=== PATIENT | female | born 1995 | race Caucasian/White ===

== ENCOUNTER 2022-01-24 15:09 | Outpatient (CLI) | payer BC, OTHER, SELFPAY ==
[2022-01-24 15:36] LABS: Hematocrit 39.9 % (37.0-47.0); Hemoglobin 13.7 g/dL (12.0-15.0); Mean Corpuscular HGB Conc 34.3 g/dl (32-36); Mean Corpuscular Volume 87.3 fl (80-100); Mean Platelet Volume 10.7 fl (7.4-10.4); Platelet Count Result 253 k/mm3 (150-375); Red Blood Count 4.57 M/mm3 (4.2-5.4); Red Cell Distribution Width 12.6 % (11.5-14.5)
[2022-01-24 15:48] LABS: Alanine Aminotransferase 22 U/L (6-35); Albumin Level 4.9 g/dL (3.5-5.1); Alkaline Phosphatase 60 U/L (38-126); Aspartate Amino Transferase 22 U/L (14-36); Bilirubin,Total 0.6 mg/dL (0.2-1.3); INR 1.1; Prothrombin Time 13.6 Seconds (11.1-14.7)
[2022-01-24 16:41] LABS: Iron 45 ug/dL (37-170)
[2022-01-24 16:53] LABS: Percent Iron Saturation 12 % (20-50)
[2022-01-24 18:23] LABS: Hepatitis B Surface Antigen Negative (Negative)
[2022-01-24 18:28] LABS: HAV RESULT Negative (Negative); Hepatitis B Core IgM Result Negative (Negative)
[2022-01-24 18:40] LABS: Hepatitis B Surface Anti Res Negative
[2022-01-24 18:48] LABS: Hepatitis C Virus Antibody Reactive (Negative)
[2022-01-26 10:59] LABS: Hepatitis A Antibody Total Reactive (Nonreactive)
[2022-01-26 18:32] LABS: Hepatitis C RNA, Quant PCR <15 IU/mL
[2022-01-27 21:04] LABS: LKM 1 Antibody <=20.0 U (<=20.0)
[2022-01-28 16:16] LABS: Actin Antibody (IgG) <20 U (<20)
[2022-01-29 11:30] LABS: Mitochondrial (M2) Ab (IgG) <=20.0 U (<=20.0)
[2022-01-29 14:21] LABS: Ceruloplasmin 26 mg/dL (18-53)
[2022-01-30 18:33] LABS: Alpha Fetoprotein Tumor Marker 1.9 ng/mL (<6.1)
[2022-02-01 01:18] LABS: ALT 14 U/L (6-29); Alpha-2-Macroglobulin 181 mg/dL (106-279); Apolipoprotein A1 115 mg/dL (101-198); Fibrosis Score 0.07; Fibrosis Stage F0; GGT 10 U/L (3-40); Haptoglobin 144 mg/dL (43-212); Necroinflammat Act Grade A0; Total Bilirubin 0.5 mg/dL (0.2-1.2)
== END 2022-01-24 15:10 | disposition home or self-care (01) ==
PROVIDERS: Visit Provider Nurse Practitioner
DX: K76.0 Fatty (change of) liver, not elsewhere classified (principal); R93.2 Abnormal findings on diagnostic imaging of liver and biliary tract
CPT/HCPCS: 36415; 80074; 80076; 81596; 82105; 82390; 82728; 83516; 83520; 83540; 83550; 85027; 85610; 86038; 86376; 86706; 86708; 87522

== ENCOUNTER 2022-03-01 07:08 | Outpatient (CLI) | payer BC, OTHER, SELFPAY ==
--- NOTE | ~2022-03-01 | CT_ITS ---
EXAMINATION: CT abdomen w con INDICATION: Right upper quadrant pain TECHNIQUE: Computed tomographic images of the abdomen were obtained after the administration of 100 c c of Omnipaque 350 intravenous contrast. The dose-length product (DLP) was 144.96 mGy-cm. Automated e xposure control and iterative reconstruction technique were employed. COMPARISON: None available FINDINGS: The lung bases are clear. The heart size is normal. The liver, spleen, pancreas, gallbladde r, and adrenal glands are normal. The right kidney is unremarkable. There is a 1.5 x 1.2 cm exophytic soft tissue density mass of the left kidney lower pole. No pathologically enlarged abdominal lymph n odes are identified. There is no free intraperitoneal gas or evidence of bowel obstruction. IMPRESSION: 1. No CT correlate for the patient's symptoms. 2. Indeterminate left kidney mass. Further evaluation by CT or MRI without and with contrast is recom mended. Reviewed, dictated and finalized at location B. HING SORTER IMPRESSION: 1. No CT correlate for the patient's symptoms. 2. Indeterminate left kidney mass. Further evaluation by CT or MRI without and with contrast is recommended.
== END 2022-03-01 07:09 | disposition home or self-care (01) ==
PROVIDERS: Visit Provider Nurse Practitioner
DX: R93.2 Abnormal findings on diagnostic imaging of liver and biliary tract (principal); R10.11 Right upper quadrant pain; N28.89 Other specified disorders of kidney and ureter
CPT/HCPCS: 74160; Q9967

== ENCOUNTER 2022-03-12 15:20 | Outpatient (CLI) | payer BC, OTHER, SELFPAY ==
--- NOTE | ~2022-03-12 | XR_ITS ---
[XR ribs RT 2V w CXR 2V ] INDICATION: Right rib pain TECHNIQUE: Frontal projection of the upper right ribs, frontal projection of the lower right ribs, ob lique projection of all the right ribs, frontal inspiratory chest x-ray for interpretation. FINDINGS: There are no displaced rib fractures identified. There are no soft tissue abnormality see n. The lungs are clear. IMPRESSION: 1:No acute displaced rib fractures. Reviewed, dictated and finalized at location B. R SYSTEMS ENGINEER
== END 2022-03-12 15:21 | disposition home or self-care (01) ==
PROVIDERS: PCP Family Medicine; Visit Provider Nurse Practitioner
DX: R10.11 Right upper quadrant pain (principal); R07.81 Pleurodynia; K76.0 Fatty (change of) liver, not elsewhere classified; R76.8 Other specified abnormal immunological findings in serum
CPT/HCPCS: 71046; 71100

== ENCOUNTER 2022-03-26 07:51 | Outpatient (RCR) | payer BC, OTHER, SELFPAY ==
[2022-03-26 08:40] VITALS: BMI 25.4
[2022-03-26 08:41] VITALS: BMI 25.4
== END 2022-06-12 07:46 | disposition home or self-care (01) ==
LOC: ANHDMC 07:51
PROVIDERS: PCP Family Medicine; Visit Provider Nurse Practitioner
DX: K76.0 Fatty (change of) liver, not elsewhere classified (principal); Z71.3 Dietary counseling and surveillance
CPT/HCPCS: 97802

== ENCOUNTER → 2022-04-01 12:46 | Outpatient (CLI) | payer BC, OTHER, SELFPAY ==
--- NOTE | ~2022-04-01 | MR_ITS ---
EXAMINATION: MR renal wo/w con DATE: 04/01/2022 13:54 INDICATION: Left kidney mass. TECHNIQUE: Magnetic resonance imaging (MRI) of the abdomen was performed without and with 13 mL Multi Annabella intravenous contrast. COMPARISON: CT abdomen 03/01/2022 FINDINGS: The liver, gallbladder, spleen, pancreas, adrenal glands, and right kidney are normal. There is a 14 mm exophytic enhancing mass in left kidney. There are no dilated loops of bowel. There are no patholo gically enlarged lymph nodes. There is no free intraperitoneal fluid. IMPRESSION: 1. 14 mm enhancing mass in left kidney, consistent with renal cell carcinoma. Reviewed, dictated and finalized at location A. MOBILE TAILLIGHT ASSEMBLER
== END ==
PROVIDERS: PCP Family Medicine; Visit Provider Nurse Practitioner
DX: N28.89 Other specified disorders of kidney and ureter (principal)
CPT/HCPCS: 74183; A9577

== ENCOUNTER 2022-06-18 13:55 | Outpatient (CLI) | payer BC, OTHER, SELFPAY ==
[2022-06-18 15:07] LABS: Alanine Aminotransferase 21 U/L (6-35); Albumin Level 4.8 g/dL (3.5-5.1); Alkaline Phosphatase 61 U/L (38-126); Aspartate Amino Transferase 21 U/L (14-36); Bilirubin,Total 0.7 mg/dL (0.2-1.3)
[2022-06-20 20:41] LABS: Hepatitis C Viral RNA PCR <15 IU/mL
== END 2022-06-18 13:56 | disposition home or self-care (01) ==
LOC: ANHLAB 13:58
PROVIDERS: PCP Family Medicine; Visit Provider Nurse Practitioner
DX: K76.0 Fatty (change of) liver, not elsewhere classified (principal); R76.8 Other specified abnormal immunological findings in serum
CPT/HCPCS: 36415; 80076; 87522

== ENCOUNTER 2022-07-24 00:22 | Day surgery (SDC) | payer BC, OTHER, SELFPAY ==
[2022-07-10 12:44] VITALS: BMI 26.2
[2022-07-24 11:45] VITALS: BP 113/74; PULSE 76; RESP 18; TEMP 36.5; O2SAT 99; BMI 26.3
[2022-07-24] MEDS: LACTATED RINGERS 1,000 ML 150 ML IV CONT (11:58)
--- NOTE | 2022-07-24 12:23 | WPDANESEPPF ---
Anes - Initial Pre Proc Eval Procedure: Operation Date: 07/24/22 13:15 Proposed Procedures p Esophagogastroduodenoscopy - Bienvenido Berg MD Date/Time: 07/24/22 12:23 Surgeon: Bienvenido Berg MD Pre Op Diagnosis: RUQP Patient Data Age: 27 Gender: F Height: 1.6 m Weight: 67.4 kg Last Vital Signs Temp 36.5 C 07/24/22 11:45 Pulse 76 07/24/22 11:45 Resp 18 07/24/22 11:45 BP 113/74 07/24/22 11:45 Pulse Ox 99 07/24/22 11:45 O2 Del Method Room Air 07/24/22 11:45 Allergies Allergy/AdvReac Type Severity Reaction Status Date / Time No Known Allergies Allergy Unverified 07/10/22 12:55 Home Medications Medication Instructions Recorded Confirmed Type vitamin E mixed 400 unit capsule 400 unit PO DAILY 01/24/22 07/10/22 History multivitamin 1 tablet PO DAILY 07/10/22 07/10/22 History Patient hx anesthesia problems: none Family hx anesthesia problems: none Results Review: All pre-operative results and documents have been reviewed as part of the pre-operative evaluation. [facility] Past Medical History Medical History Abnormal liver diagnostic imaging Hepatitis C antibody positive in blood Left kidney mass Left kidney mass NAFLD (nonalcoholic fatty liver disease) Rib pain on right side RUQ abdominal pain Social History Social History Smoking status: Never smoker Second hand tobacco smoke exposure: No Alcohol intake: never Substance use: never Substance use type: does not use Living arrangements: with family Gender identity (if verbalized by the patient): Female Spiritual care concerns: No Anes - Eval Final PreProcedure Day of Procedure 07/24/22 12:23 Patient weight: overweight Heart: regular rate and rhythm Lungs: clear to auscultation and normal air movement Airway: Mallampati scale class II Neurological: alert and oriented Last oral intake: >/= 8 hours ASA classification: II Emergent: no Anesthetic plan: proceed Anesthesia type and monitoring: general GIVS Results Review: All pre-operative results and documents have been reviewed as part of the pre-operative evaluation. Informed Consent: The patient's anesthetic plan and its attendant risks and benefits were discussed with the patient/family/POA. Questions were solicited and answers provided to the satisfaction of the patient/family/POA.
--- NOTE | 2022-07-24 12:34 | WPDHPUPDATE1 ---
History and Physical Update Update Date/Time: 07/24/22 12:34 History and Physical has been reviewed, including an updated exam of the patient. There are NO changes in the patient's condition. Risks, benefits, and alternatives have been discussed and questions answered. Patient agrees to proceed with procedure.
[2022-07-24 12:54] VITALS: BP 120/70; PULSE 81; RESP 16; O2SAT 100
[2022-07-24 13:04] VITALS: BP 105/70; PULSE 73; RESP 21; O2SAT 100
[2022-07-24 13:14] VITALS: BP 109/73; PULSE 68; RESP 18; O2SAT 100
== END 2022-07-24 13:24 | disposition home or self-care (01) ==
PROVIDERS: PCP Family Medicine; Visit Provider Internal Medicine Gastroenterology
PROC: 0DJ08ZZ Inspection of Upper Intestinal Tract, Via Natural or Artificial Opening Endoscopic (ICD-10-PCS; CPT 43235; principal; 2022-07-24 13:15)
DX: R10.11 Right upper quadrant pain (principal); K76.0 Fatty (change of) liver, not elsewhere classified; R76.8 Other specified abnormal immunological findings in serum
CPT/HCPCS: 43239; 88305; 88342; J2001; J2704; J7120

== ENCOUNTER 2023-01-10 10:30 | Outpatient (CLI) | payer BC, OTHER, SELFPAY ==
[2023-01-10 10:54] LABS: Hematocrit 39.9 % (37.0-47.0); Hemoglobin 13.6 g/dL (12.0-15.0); Mean Corpuscular HGB Conc 34.1 g/dl (32-36); Mean Corpuscular Hemoglobin 30.1 pg (26-34); Mean Corpuscular Volume 88.3 fl (80-100); Mean Platelet Volume 10.4 fl (7.4-10.4); Platelet Count Result 244 k/mm3 (150-375); Red Blood Count 4.52 M/mm3 (4.2-5.4); Red Cell Distribution Width 12.2 % (11.5-14.5); White Blood Count 9.4 K/mm3 (4.5-10.0)
[2023-01-10 11:02] LABS: Alanine Aminotransferase 19 U/L (6-35); Albumin Level 4.3 g/dL (3.5-5.1); Alkaline Phosphatase 49 U/L (38-126); Anion Gap 8 mmol/L (8-16); Aspartate Amino Transferase 23 U/L (14-36); Bilirubin,Total 0.6 mg/dL (0.2-1.3); Blood Urea Nitrogen 8 mg/dL (7-17); Calcium 9.4 mg/dL (8.4-10.2); Carbon Dioxide 24 mmol/L (22-30); Chloride 103 mmol/L (98-107); Estimated Glomerular Filt Rate > 60; Glucose 116 mg/dL (65-110); Potassium 3.5 mmol/L (3.4-5.0); Sodium 135 mmol/L (137-145)
[2023-01-13 14:43] LABS: Hepatitis C RNA, Quant PCR <15 IU/mL
== END 2023-01-10 10:31 | disposition home or self-care (01) ==
LOC: ANHLAB 10:32
PROVIDERS: PCP Family Medicine; Visit Provider Nurse Practitioner
DX: K76.0 Fatty (change of) liver, not elsewhere classified (principal); R76.8 Other specified abnormal immunological findings in serum
CPT/HCPCS: 36415; 80053; 85027; 87522

== ENCOUNTER 2023-07-11 08:38 | Outpatient (CLI) | payer BC, OTHER, SELFPAY ==
[2023-07-11 09:32] LABS: Hematocrit 31.3 % (37.0-47.0); Mean Corpuscular HGB Conc 35.1 g/dl (32-36); Mean Corpuscular Hemoglobin 31.6 pg (26-34); Mean Corpuscular Volume 89.9 fl (80-100); Mean Platelet Volume 10.4 fl (7.4-10.4); Platelet Count Result 225 k/mm3 (150-375); Red Blood Count 3.48 M/mm3 (4.2-5.4); Red Cell Distribution Width 13.1 % (11.5-14.5); White Blood Count 8.1 K/mm3 (4.5-10.0)
[2023-07-11 09:41] LABS: Prothrombin Time 13.2 Seconds (11.1-14.7)
[2023-07-11 09:45] LABS: Alanine Aminotransferase 16 U/L (6-35); Albumin Level 3.6 g/dL (3.5-5.1); Alkaline Phosphatase 85 U/L (38-126); Anion Gap 6 mmol/L (8-16); Aspartate Amino Transferase 19 U/L (14-36); Bilirubin,Total 0.4 mg/dL (0.2-1.3); Blood Urea Nitrogen 3 mg/dL (7-17); Calcium 9.6 mg/dL (8.4-10.2); Carbon Dioxide 22 mmol/L (22-30); Chloride 106 mmol/L (98-107); Estimated Glomerular Filt Rate > 60; Glucose 93 mg/dL (65-110); Potassium 3.1 mmol/L (3.4-5.0); Sodium 134 mmol/L (137-145)
== END 2023-07-11 08:39 | disposition home or self-care (01) ==
LOC: ANHLAB 08:40
PROVIDERS: PCP Family Medicine; Visit Provider Nurse Practitioner
DX: K76.0 Fatty (change of) liver, not elsewhere classified (principal)
CPT/HCPCS: 36415; 80053; 85027; 85610

== ENCOUNTER 2024-01-12 14:53 | Outpatient (CLI) | payer BC, OTHER, SELFPAY ==
[2024-01-12 15:35] LABS: Hematocrit 40.8 % (37.0-47.0); Hemoglobin 13.7 g/dL (12.0-15.0); Mean Corpuscular HGB Conc 33.6 g/dl (32-36); Mean Corpuscular Hemoglobin 29.1 pg (26-34); Mean Corpuscular Volume 86.8 fl (80-100); Mean Platelet Volume 10.6 fl (7.4-10.4); Platelet Count Result 273 k/mm3 (150-375); Red Cell Distribution Width 12.3 % (11.5-14.5); White Blood Count 5.8 K/mm3 (4.5-10.0)
[2024-01-12 15:46] LABS: Prothrombin Time 13.4 Seconds (11.1-14.7)
[2024-01-12 15:51] LABS: Alanine Aminotransferase 35 U/L (6-35); Albumin Level 4.8 g/dL (3.5-5.1); Alkaline Phosphatase 77 U/L (38-126); Anion Gap 10 mmol/L (4-12); Aspartate Amino Transferase 35 U/L (14-36); Bilirubin,Total 0.4 mg/dL (0.2-1.3); Blood Urea Nitrogen 10 mg/dL (7-17); Calcium 9.7 mg/dL (8.4-10.2); Carbon Dioxide 27 mmol/L (22-30); Chloride 98 mmol/L (98-107); Estimated Glomerular Filt Rate > 60; Glucose 94 mg/dL (65-110); Potassium 4.2 mmol/L (3.4-5.0); Sodium 135 mmol/L (137-145)
== END 2024-01-12 14:54 | disposition home or self-care (01) ==
PROVIDERS: PCP Family Medicine; Visit Provider Nurse Practitioner
DX: K76.0 Fatty (change of) liver, not elsewhere classified (principal)
CPT/HCPCS: 36415; 80053; 85027; 85610

== ENCOUNTER 2024-02-04 09:22 | Outpatient (CLI) | payer BC, OTHER, SELFPAY ==
--- NOTE | ~2024-02-04 | US_ITS ---
Limited Abdominal Sonogram: Real-time sonographic imaging of the right upper quadrant was performed. Clinical History: Right upper quadrant pain Findings: The liver appears normal with no evidence of mass lesion or bile duct dilatation. Main por rambo vein demonstrates normal direction of flow. The gallbladder is well distended, and appears normal with no evidence of gallstone or wall thickening. The common bile duct measures 3 mm. The visualize d pancreas, aorta, and IVC are unremarkable. Right kidney measures 11.2 cm in length, without hydrone phrosis or renal stone. Impression: No significant abnormality seen. Reviewed, dictated and finalized at location . Impression: No significant abnormality seen.
== END 2024-02-04 09:23 | disposition home or self-care (01) ==
LOC: ANHIMG 09:24
PROVIDERS: PCP Family Medicine; Visit Provider Nurse Practitioner
DX: R10.11 Right upper quadrant pain (principal); R11.0 Nausea; K76.0 Fatty (change of) liver, not elsewhere classified
CPT/HCPCS: 76705

== ENCOUNTER 2024-02-27 17:29 | Emergency (ER) | payer BC, OTHER, SELFPAY ==
--- NOTE | ~2024-02-27 | XR_ITS ---
CHEST RADIOGRAPH, PA AND LATERAL CLINICAL HISTORY: Cough . COMPARISON: None available TECHNIQUE: PA and lateral views of the chest. FINDINGS The cardiomediastinal silhouette is unremarkable. The lungs are clear. Visualized osseous structures and soft tissues are unremarkable. IMPRESSION: No focal infiltrate or effusion. Reviewed, dictated and finalized at location A. AL HUMAN RESOURCES DIRECTOR
[2024-02-27 17:38] VITALS: BP 120/85; PULSE 97; RESP 16; TEMP 36.3; O2SAT 99
--- NOTE | 2024-02-27 17:43 | ED.URI ---
HPI - URI/Sore Throat General Chief Complaint: Upper Respiratory Infection Stated Complaint: sorethroat,fever Time Seen by Provider: 02/27/24 18:20 Source: patient and RN notes reviewed Mode of arrival: ambulatory Limitations: no limitations History of Present Illness HPI Narrative: 28-year-old female presents with concern for fever of 102 last night, sore throat, chills, body aches, headache, nausea, cough. Reports exposure to strep. She reports symptoms started 3 days ago. She reports nasal congestion and ear pain. MD elicited complaint: cough and sore throat Related Data Home Medications Medication Instructions Recorded Confirmed multivitamin 1 tablet PO DAILY 07/10/22 02/27/24 Allergies Allergy/AdvReac Type Severity Reaction Status Date / Time No Known Allergies Allergy Verified 02/27/24 17:44 Review of Systems Review of Systems: CONSTITUTIONAL: Reports malaise, chills, sweats, fever. EYES: Denies visual changes, redness, or discharge. ENT: Reports rhinorrhea, congestion, otalgia and sore throat. CARDIOVASCULAR: Denies chest pain, palpitations, or edema. RESPIRATORY: Reports cough. Denies dyspnea. GASTROINTESTINAL: Denies abdominal pain, vomiting, diarrhea. Reports nausea SKIN: Denies rash or itching. MUSCULOSKELETAL: Reports myalgia. NEUROLOGIC: Reports headache. All systems reviewed & are unremarkable except as noted in HPI and below PMFSH Past Medical History Medical History Abnormal liver diagnostic imaging Constipation GERD (gastroesophageal reflux disease) Hepatitis C antibody positive in blood Left kidney mass Left kidney mass NAFLD (nonalcoholic fatty liver disease) Rib pain on right side RUQ abdominal pain Social History Social History Smoking status: Never smoker Second hand tobacco smoke exposure: No Alcohol intake: never Substance use: never Substance use type: does not use Living arrangements: with family Gender identity (if verbalized by the patient): Female Spiritual care concerns: No Comments At time of signature, agree with nursing past medical, surgical, social and family history. There is no relevant family history pertinent to the presenting complaint Exam Narrative: GENERAL: Well-appearing, well-nourished, and in no acute distress. HEAD: Normocephalic EYES: PERRLA, conjunctivae clear ENT: Nares clear, turbinates edematous and erythematous, clear discharge. Mucous membranes moist. TM pearly knott with dull light reflex bilaterally; no tragal tenderness. Oropharynx not erythematous without lesions. Tonsils not enlarged and without exudate, no drooling, no hoarseness, no trismus, uvula midline. NECK: Supple. No lymphadenopathy CHEST: Clear to auscultation, breath sounds equal. No wheezing, rhonchi, rales, or stridor. No respiratory distress, speaks in full sentences. HEART: Regular rate and rhythm. No murmur heard. SKIN: Warm, dry, no rash. NEURO: Alert and oriented x3. PSYCH: Normal mood and affect Course Course Emergency Course: Patient is aware of diagnosis, understands and agrees to treatment plan. Anticipatory guidance given. Patient agrees to follow-up as directed and is aware of reasons to seek care at the emergency department. Portions of this record may have been created with voice recognition software Level of Care: Express Care Visit Vital Signs Vital signs: Vital Signs Temperature 97.3 F L 02/27/24 17:38 Pulse Rate 97 02/27/24 17:38 Respiratory Rate 16 02/27/24 17:38 Blood Pressure 120/85 02/27/24 17:38 Pulse Oximetry 99 02/27/24 17:38 Temperature 97.3 F L 02/27/24 17:38 Pulse Rate 97 02/27/24 17:38 Respiratory Rate 16 02/27/24 17:38 Blood Pressure 120/85 02/27/24 17:38 Pulse Oximetry 99 02/27/24 17:38 Reviewed. MDM - URI/Sore Throat MDM Narrative Medical decision making narrative: Differential diagnosis considered: Kumar virus, strep pharyngitis, allergic rhinitis, upper respiratory tract infection, sinusitis, rhinosinusitis, nasopharyngitis. viral pharyngitis, otitis media, otitis externa, pneumonia, bronchitis, viral cough syndrome, viral syndrome, and influenza. Exam findings show no acute concerns or changes; patient is non-toxic appearing and is in no distress. Patient is appropriate for outpatient treatment and follow-up. Lab Data Attestation: I reviewed the patient's lab results. Imaging Data My impression: Images reviewed, interpreted by radiologist, agree, see report. Radiologist's impression: CHEST RADIOGRAPH, PA AND LATERAL CLINICAL HISTORY: Cough . COMPARISON: None available TECHNIQUE: PA and lateral views of the chest. FINDINGS The cardiomediastinal silhouette is unremarkable. The lungs are clear. Visualized osseous structures and soft tissues are unremarkable. IMPRESSION: No focal infiltrate or effusion. Critical Care Time Critical Care Time Critical Care Time: No Discharge Plan Discharge Clinical Impression: Viral illness Patient Disposition: Home, Self-Care Condition: Stable Instructions: Viral Syndrome (ED) Additional Instructions: Your x-ray looks normal, it does not show pneumonia Your rapid strep swab was negative today at [facility]. A throat culture will be sent to the laboratory for further testing. If the test is positive, you will receive a phone call within 48 hours and an appropriate antibiotic will be initiated at that time. Your symptoms are likely due to a viral illness, which is not treated with antibiotics. Viral symptoms can be present for up to a few weeks. -Alternate Tylenol and Motrin per package directions for fever or pain. -Antihistamine medication such as Benadryl at night and Zyrtec during the day can help improve symptoms. -Eat and drink things that are easy to swallow, like tea or soup, or popsicles to suck on. -Oral rinses such as: Salt water gargles and/or may use topical anesthetic (eg. Chloraseptic spray) or lozenges to relieve dryness or throat pain). -Frequent hand washing or hand glazier structural glass is one of the best ways to prevent spread of infection. -Follow up with primary care provider in 2-3 days if condition is not improving; or seek ER visit if you have trouble breathing, cannot drink enough fluids, have muffled voice, difficulty opening your mouth, or severe swelling. Prescriptions: New pseudoephedrine HCl [12 Hour Decongestant] 120 mg tablet extended release 120 mg PO Q12H PRN (Reason: nasal congestion) Qty: 20 0RF methylprednisolone [Medrol (Tj)] 4 mg tablets,dose pack See Rx Instructions .ROUTE .COMPLEX Qty: 21 0RF Rx Instructions: orally per package directions No Action omeprazole 20 mg capsule,delayed release(DR/EC) 20 mg PO DAILY 56 Days Qty: 56 0RF multivitamin Tablet 1 tablet PO DAILY Follow-up/Referrals: Hunter,MD Yaneth [Primary Care Provider] - Stand Alone Forms: Work/School Release IP Time of Disposition: 18:44
[2024-02-27 17:54] LABS: EDSTREPNEGPOS1 Negative (Negative)
== END 2024-02-27 18:50 | disposition home or self-care (01) ==
PROVIDERS: Emergency Provider Nurse Practitioner; PCP Family Medicine
DX: B34.9 Viral infection, unspecified (principal); K21.9 Gastro-esophageal reflux disease without esophagitis
CPT/HCPCS: 71046; 87081; 87880; 99213; G0463

== ENCOUNTER 2024-07-06 07:32 | Outpatient (CLI) | payer BC, OTHER, SELFPAY ==
--- OUTSIDE RECORDS SUMMARY | 2024-07-06 07:35 | XMS_ITS | Encounter Summary ---
Author Organization [facility] Address [address] [place] [address] Care Team Providers Care Pumper Brewery Name Role Phone Yaneth Harrison MD Primary Care Provider Encounter Details Date Type Department Care Team (Late st Contact Info) Description 08/12/2022 [employer] Message Enc [facility] Family & Internal Medicine [facility] [id number] [place] [phone] [place] [address] [facility]. [address] [place] [address] Scheduling question Social History Tobacco Use Types Packs/Day Years Used Date Smoking Tobacco: Never Smokeless Tobacco: Never Alcohol Use Standard Drinks/Week Comments Yes 0 (1 standard drink = 0.6 oz pur e alcohol) rare PHQ-2 Answer Date Recorded PHQ-2 Score - If the patient scores above 3, please move on to questions 3-9 0 12/17/2021 Comments No Sex and Gender Information Value Date Recorded Sex Assigned at Female 06/24/2024 1:07 PM FARM EQUIPMENT ASSEMBLER Legal Sex Female 8:26 PM CDT Gender Identity Not on file Sexual Orientation Not on file documented as of this encounter Functional Status * RETIRED Are you deaf or do you have serious difficulty hearing Answer Date of Assessment Author Status No 11/08/2020 7:08 PM CDT Activ e * RETIRED Are you blind or do you have serious difficulty seeing, even when wearing glasses? Answer Date of Assessment Author Status No 11/08/2020 7:08 PM CDT Activ e * Do you have serious difficulty walking or climbing stairs? Answer Date of Assessment Author Status No 11/08/2020 7:08 PM CDT Harleen Navarrete R N Active * Do you have difficulty dressing or bathing? Answer Date of Assessment Author Status No 11/08/2020 7:08 PM CDT Harleen Navarrete R N Active * Because of a physical, mental, or emotional condition, do you have difficulty doing errands alone such as visiting a doctor's office or shopping? Answer Date of Assessment Author Status No 11/08/2020 7:08 PM CDT Harleen Navarrete R N Active documented as of this encounter Mental Status * Because of a physical, mental, or emotional condition, do you have serious difficulty concentrating, remembering, or making decisions? Answer Entry Date Author Status No 11/08/2020 7:08 PM CDT Harleen Navarrete R N Active documented in this encounter Plan of Treatment Upcoming Encounters Date Type Department Care Team (Late st Contact Info) Description 10/25/2024 1:40 PM CDT Office Visit [facility] Family & Internal Medicine [address] [phone] [place] [address] [facility] [employer]. [address] [place] [address] documented as of this encounter Goals Goal Patient Goal Type Associated Problems Recent Progress Patient-Stated? Author Safety Patient/family will have appropriate support at home upon discharge General No Tonja Santos RN documented as of this encounter Visit Diagnoses Not on filedocumented in this encounter Care Teams Pumper Brewery Relationship Specialty [place] [address] [facility]. [address] [place] [id number] PCP - General FAMILY PRACTICE 03/12/22 documented as of this encounter
--- OUTSIDE RECORDS SUMMARY | 2024-07-06 07:35 | XMS_ITS | Encounter Summary ---
Author Organization [facility] Address [address] [place] [address] Care Team Providers Care Collection Agent Name Role Phone Yaneth Harrison MD Primary Care Provider [phone] Encounter Details Date Type Department Care Team (Late st Contact Info) Description 03/26/2023 [employer] Message Enc [facility] Family & Internal Medicine [facility] [id number] [place] [phone] [place], [facility] Provider Appt Social History Tobacco Use Types Packs/Day Years Used Date Smoking Tobacco: Never Smokeless Tobacco: Never Alcohol Use Standard Drinks/Week Comments Not Currently 0 (1 standard drink = 0.6 oz pur e alcohol) rare PHQ-2 Answer Date Recorded Patient Health Questionnaire-2 Score 1 10/02/2022 Comments Yes Sex and Gender Information Value Date Recorded Sex Assigned at Female 06/24/2024 1:07 PM POULTRY PROCESSOR Legal Sex Female 8:26 PM CDT Gender [...] Description 10/25/2024 1:40 PM CDT Office Visit [facility] Family & Internal Medicine [facility] [address] [place] [address] [place] [address] [facility]. [address] [place] [address] documented as of this encounter Goals Goal Patient Goal Type Associated Problems Recent Progress Patient-Stated? Author Safety Patient/family will have appropriate support at home upon discharge General No Tonja Santos RN documented as of this encounter Visit Diagnoses Not on filedocumented in this encounter Care Teams Collection Agent Relationship Specialty [place] [address] [facility]. [address] [place] [address] PCP - General FAMILY PRACTICE 03/12/22 documented as of this encounter
--- OUTSIDE RECORDS SUMMARY | 2024-07-06 07:35 | XMS_ITS | Encounter Summary ---
Author Organization [facility] Address [address] [place] [address] Care Team Providers Care Rock Wool Applicator Name Role Phone Yaneth Harrison MD Primary Care Provider [phone] Encounter Details Date Type Department Care Team (Late st Contact Info) Description 07/10/2022 [employer] Message Enc [facility] Family & Internal Medicine [facility] [id number] [place] [phone] [email or web address], [facility] Provider lab results Social History Tobacco Use Types Packs/Day Years [...] Sex Assigned at Female 06/24/2024 1:07 PM AUTHORIZATION REPRESENTATIVE Legal Sex Female 8:26 PM CDT Gender [...] Status No 11/08/2020 7:08 PM CDT Harleen Navarreet R N Active documented in this encounter Plan of Treatment Upcoming Encounters Date Type Department Care Team (Late st Contact Info) Description 10/25/2024 1:40 PM CDT Office Visit [facility] Family & Internal Medicine [facility] [address] [place] [phone] [place] [address] [facility]. [address] [place] [address] documented as of this encounter Goals Goal Patient Goal Type Associated Problems Recent Progress Patient-Stated? Author Safety Patient/family will have appropriate support at home upon discharge General No Tonja Santos RN documented as of this encounter Visit Diagnoses Not on filedocumented in this encounter Care Teams Rock Wool Applicator Relationship Specialty [place] [address] [facility] [address] [place] [address] PCP - General FAMILY PRACTICE 03/12/22 documented as of this encounter
--- OUTSIDE RECORDS SUMMARY | 2024-07-06 07:35 | XMS_ITS | Referral Summary ---
Author Organization [facility] Address [address] [facility] [place] [address] Care Team Providers Care Burr Picker Name Role Phone Yaneth Harrison MD Primary Care Provider Source Comments [facility],non-owned Affiliates and Associated Physician Practices is amultiple site organization consisting of ambulatory clinics and hospital sitesin [place], [place], [place] and [place]. This disclosure is being madepursuant to the Care Everywhere program and may not contain all information available regarding this patient. Last updated 18.[facility] Social History Tobacco Use Types Packs/Day Years Used Date Smoking Tobacco: Never Assessed Sex and Gender Information Value Date Recorded Sex Assigned at Not on file Gender Identity Not on file Sexual Orientation Not on file Plan of Treatment Not on file Care Teams Burr Picker Relationship Specialty [place] [address] [phone] PCP - General 08/13/22
--- OUTSIDE RECORDS SUMMARY | 2024-07-06 07:35 | XMS_ITS | Clinical Summary ---
Author Organization [facility] Address [address] [facility] [place] [address] Care Team Providers Care Lead Nitrate Processor Name Role Phone Yaneth Harrison MD Primary Care Provider [phone] Source Comments [facility],non-owned Affiliates and Associated Physician Practices is amultiple site organization consisting of ambulatory clinics and hospital sitesin [place], [place], [place] and [place]. This disclosure is being madepursuant to the Care Everywhere program and may not contain all information available regarding this patient. Last updated 18.[facility] [employer] Social History Tobacco Use Types Packs/Day Years Used Date Smoking Tobacco: Never Assessed Sex and Gender Information Value Date Recorded Sex Assigned at Not on file Gender Identity Not on file Sexual Orientation Not on file Plan of Treatment Health Maintenance Due Date Last Done Comments PAP SMEAR 1995 HIV SCREENING 2010 HEPATITIS C SCREENING 04/07/2013 DTAP/TDAP/TD VACCINES (1 - Tdap) 2014 HEPATITIS B VACCINE (1 of 3 - 19+ 3-dose series) 2014 COVID-19 VACCINE (1 - 2023-2 5 season) 2023 INFLUENZA VACCINE (#1) 2023 DEPRESSION SCREENING 04/21/2024 ZOSTER VACCINE (1 of 2) 2045 HIB VACCINE Aged Out No longer eligi ble based on patient's age to complete this topic HPV VACCINE Aged Out No longer eligi ble based on patient's age to complete this topic MENINGOCOCCAL (Group B) VACC INE SHARED DECISION-MAKING Aged Out No longer eligibl e based on patient's age to complete this topic MENINGOCOCCAL GROUPS A/C/Y/W VACCINE Aged Out No longer eligible b ased on patient's age to complete this topic PNEUMOCOCCAL VACCINE Aged Out No long er eligible based on patient's age to complete this topic Care Teams Lead Nitrate Processor Relationship Specialty [place] [address] [address] PCP - General 08/13/22
--- OUTSIDE RECORDS SUMMARY | 2024-07-06 07:35 | XMS_ITS | Encounter Summary ---
Author Organization [facility] Address [address] [place] [address] Care Team Providers Care Roller Operator Name Role Phone Yaneth Harrison MD Primary Care Provider [phone] Encounter Details Date Type Department Care Team (Late st Contact Info) Description 04/29/2022 Epidemic Sound Message Enc [facility] Family & Internal Medicine [facility] [address] [place] [address] [place] [address] [facility]. [address] [place] [address] Kidney cancer update Social History Tobacco Use Types Packs/Day Years [...] Sex Assigned at Female 06/24/2024 1:07 PM FURNITURE STAINER Legal Sex Female 8:26 PM CDT Gender Identity Not on file Sexual Orientation Not on file COVID-19 Exposure Response Date Recorded In the last 10 days, have yo u been in contact with someone who was confirmed or suspected to have Coronavirus/COVID-19? No / Unsure 04/02/2022 1:57 PM FURNITURE STAINER documented as of this encounter Functional Status [...] Author Status No 11/08/2020 7:08 PM CDT Harelen Navarrete R N Active * Do you [...] R N Active documented in this encounter Progress Notes * Cherise De Oliveira RN - 04/29/2022 11:31 AM CST FYI. Does he need a surgical clearance appt? ITURE STAINER documented in this encounter Plan of Treatment Upcoming Encounters Date Type Department Care Team (Late st Contact Info) Description 10/25/2024 1:40 PM CDT Office Visit [facility] Family & Internal Medicine [facility] [address] [place] [address] [place] [address] [facility]. [address] [place] [address] documented as of this encounter Goals Goal Patient Goal Type Associated Problems Recent Progress Patient-Stated? Author Safety Patient/family will have appropriate support at home upon discharge General No Freddy Santosssica J, RN documented as of this encounter Visit Diagnoses Not on filedocumented in this encounter Care Teams Roller Operator Relationship Specialty [place] [address] [place] [address] PCP - General FAMILY PRACTICE 03/12/22 documented as of this encounter
--- OUTSIDE RECORDS SUMMARY | 2024-07-06 07:35 | XMS_ITS | Patient Health Summary ---
Author Organization [facility] Address [address] [facility] [place] [address] Care Team Providers Care Mule Tender Name Role Phone Yaneth Harrison MD Primary Care Provider [phone] Note from [facility],non-owned Affiliates and Associated Physician Practices is amultiple site organization consisting of ambulatory clinics and hospital sitesin [place], [place], [place] and [place]. This disclosure is being madepursuant to the Care Everywhere program and may not contain all information available regarding this patient. Last updated 18.[facility] Social History Tobacco Use Types Packs/Day Years Used Date Smoking Tobacco: Never Assessed Sex and Gender Information Value Date Recorded Sex Assigned at Not on file Gender Identity Not on file Sexual Orientation Not on file Procedures * WA LIVER ELASTOGRAPHY(Performed 02/11/2022) Performed for Hepatic steatosis Results * WA LIVER ELASTOGRAPHY (02/11/2022 12:25 PM CDT) Narrative Han Pinedo MD - 02/11/2022 12:25 PM CDT Han Pinedo MD 02/12/2022 11:21 AM Diagnosis: Hepatic steatosis RN verified patient not , no implanted devices and NPO for prior 3 hours. Date of Exam: 02/11/2022 Liver Stiffness: (LSM, kPa) median: 5.4 IQR (interquartile range): 0.4 IQR/Median% (ideally < 30%): 7% CAP (controlled attenuation parameter): 276 Technical Difficulty: None Ordering Provider: Radha Escalante APRN Phone Fax Fibroscan interpretation: I have personally reviewed the Fibroscan report and associated tracings. The calculated Liver Stiffness Measurement (LSM, kPa) indicates that: The probability of advanced liver fibrosis is: low. The loss of ultrasound signal, (controlled attenuation parameter, CAP [dB/m]), indicates that the probability of hepatic steatosis is: moderate. Han Pinedo MD The following criteria are used to indicate the probability of advanced (stage 3-4) fibrosis: < 7.0 kPa: low 7.0-8.9 kPa: low to moderate 9.0-14.9 kPa: moderate 15-20 kPa: high > 20 kPa: very high Liver stiffness > 20 kPa is also associated with a high probability of complications of portal hypertension including varices and ascites. Liver stiffness > 50 kPa is associated with a high risk of variceal bleeding. These interpretations are based on the following published data: Chen PJ, Foreign M, Dipti M, et al. Accuracy of FibroScan controlled attenuation parameter and liver stiffness measurement in assessing steatosis and fibrosis in patients with nonalcoholic fatty liver disease. Gastroenterology 2019;156:0048-4694. Luis A MS, Nazario R, Van Santo ML, et al. Vibration-controlled transient elastography to assess fibrosis and steatosis in patients with nonalcoholic fatty liver disease. Clin Gastroenterol Hepatol 2019;17:156-163. Note: 1. Fibroscan cannot reliably identify earlier stages of fibrosis (ie distinguish F0 from F1 and F2) and thus a histologic stage cannot be predicted from the Fibroscan reading. 2. Assessing the likelihood of advanced fibrosis in patients with indeterminate liver stiffness measurement (LSM) by Fibroscan (e.g., 8-15 kPa) can be improved by also calculating the FIB4 score (Davyduke et al. Hepatology Communications 2019;3:3228-8110) or NAFLD Fibrosis score (Regalado et al. Clinical Gastroenterology and Hepatology 2019;17:1538-5615. from routine clinical data. 3. Liver stiffness can be increased by factors other than fibrosis including passive congestion, infiltrative processes, active alcoholism, biliary obstruction and marked inflammation. The interpretation of the Fibroscan result provided above may not have taken such clinical factors into account. Disease etiology also influences Fibroscan cutoff values for fibrosis stages and the following cutoffs have been proposed (Anatoly et al, Clin Gastro Hepatol 2015; 13:27-36): Cutoffs for Stage 3 and Stage 4 fibrosis respectively: Hepatitis B: >9 and >11.7 kPa Hepatitis C: >9.5 and >12.5 kPa HCV-HIV: >11 and >14 kPa Cholestatic liver diseases: >10 and >17.9 kPa NAFLD/FERREIRA: >10 and >14 kPa CAP estimates of steatosis: normal <200 dB/m mild 200 to 250 dB/m moderate 250-290 dB/m substantial > 290 dB/m (Note that Fibroscan is not a quantitative measure of liver fat.) These criteria are estimates and may change as additional supporting data becomes available. [email or web address] Radha Escalante HULL BUILDER-BILINGUAL ADMINISTRATIVE ASSISTANT PROCEDURE/ MINOR SURGICAL ORDERABLES Care Teams Mule Tender Relationship Specialty [place] [address] [address] PCP - General 08/13/22
--- OUTSIDE RECORDS SUMMARY | 2024-07-06 07:35 | XMS_ITS | Encounter Summary ---
Author Organization [facility] Address [address] [place] [address] Care Team Providers Care Director Payment Name Role Phone Yaneth Harrison MD Primary Care Provider [phone] Encounter Details Date Type Department Care Team (Late st Contact Info) Description 12/13/2022 Motivating Wellnesst Message Enc [facility] Family & Internal Medicine [facility] [address] [place] [address] [place] [address] [facility]. [address] [place] [address] MRI Lab order Social History Tobacco Use Types Packs/Day Years Used Date Smoking Tobacco: Never Smokeless Tobacco: Never Alcohol Use Standard Drinks/Week Comments Yes 0 (1 standard drink = 0.6 oz pur e alcohol) rare PHQ-2 Answer Date Recorded Patient Health Questionnaire-2 Score 1 10/02/2022 Comments No Sex and Gender Information Value Date Recorded Sex Assigned at Female 06/24/2024 1:07 PM CONSULTING BUSINESS DEVELOPER Legal Sex Female 8:26 PM CDT Gender [...] documented in this encounter Progress Notes * Nallely Betancourt RN - 12/13/2022 2:54 PM CDT Please advise documented in this encounter Plan of Treatment Upcoming Encounters Date Type Department Care Team (Late st Contact Info) Description 10/25/2024 1:40 PM CDT Office Visit [facility] Family & Internal Medicine [facility] [address] [place] [address] [place] [address] [facility] [place] [address] documented as of this encounter Goals Goal Patient Goal Type Associated Problems Recent Progress Patient-Stated? Author Safety Patient/family will have appropriate support at home upon discharge General Tonja Enciso RN documented as of this encounter Visit Diagnoses Not on filedocumented in this encounter Care Teams Director Payment Relationship Specialty [place] [address] [facility] [address]. [address] [place] [address] PCP - General FAMILY PRACTICE 03/12/22 documented as of this encounter
--- OUTSIDE RECORDS SUMMARY | 2024-07-06 07:35 | XMS_ITS | Encounter Summary ---
Author Organization [facility] Address [address] [place] [address] Care Team Providers Care Business Management Manager Name Role Phone Tonja Pickens PROJECT MANAGEMENT DIRECTOR Primary Care Provider + Mari Disla PROJECT MANAGEMENT DIRECTOR Primary Care Provider [phone] Yaneth Harrison MD Primary Care Provider [phone] Encounter Details Date Type Department Care Team (Late st Contact Info) Description 11/27/2021 Win the Planet Message [facility] [address] [place] [address] Mari Disla PROJECT MANAGEMENT DIRECTOR [address] [place], [place] [id number] Follow up question from UTI Social History Tobacco Use Types Packs/Day Years Used Date Smoking Tobacco: Never Smokeless Tobacco: Never Alcohol Use Standard Drinks/Week Comments Yes 0 (1 standard drink = 0.6 oz pur e alcohol) rare PHQ-2 Answer Date Recorded PHQ-2 Score - If the patient scores above 3, please move on to questions 3-9 0 11/19/2021 Comments No Sex and Gender Information Value Date Recorded Sex Assigned at Female 06/24/2024 1:07 PM NEW BUSINESS CLERK Legal Sex Female 8:26 PM CDT Gender Identity Not on file Sexual Orientation Not on file COVID-19 Exposure Response Date Recorded In the last 10 days, have yo u been in contact with someone who was confirmed or suspected to have Coronavirus/COVID-19? No / Unsure 11/19/2021 7:17 AM CDT documented as of this encounter Functional Status [...] Description 10/25/2024 1:40 PM CDT Office Visit [facility] Family & Internal Medicine [facility] [address] [place] [address] [place] [address] [facility]. [address] [place] [address] documented as of this encounter Goals Goal Patient Goal Type Associated Problems Recent Progress Patient-Stated? Author Safety Patient/family will have appropriate support at home upon discharge General No Tonja Santos RN documented as of this encounter Visit Diagnoses Not on filedocumented in this encounter Care Teams Business Management Manager Relationship Specialty Start Date End Date Tonja Pickens NP [address] [facility] [address] [place] [address] PCP - General Nurse Practitioner Family 09/14/21 Mari Disla NP [address] [place] [address] PCP - General NURSE PRACTITIONER 03/04/22 03/11/22 [place] [address] [facility]. [address] [place] [address] PCP - General FAMILY PRACTICE 03/12/22 documented as of this encounter
--- OUTSIDE RECORDS SUMMARY | 2024-07-06 07:35 | XMS_ITS | Clinical Summary ---
Author Organization [facility] Address [facility] [place] [address] Care Team Providers Care Associate Professor Of History Name Role Phone Yaneth Harrison MD Primary Care Provider Allergies No known active allergies Medications famotidine (PEPCID) 40 MG tablet Take 1 tablet (40 mg total) by mouth daily. 02/09/2023 Active Multiple Vitamin (MULTIVITAMIN ADULT OR) Active albuterol sulfate HFA 108 (90 Base) MCG/ACT inhalerIndicati ons:Wheezing Inhale 2 puffs into the lungs every 6 (six) hours as needed for Wheezing. 18 g 03/11/2024 Active semaglutide-karla ght management (WEGOVY) 0.5 mg/dose injection (PEN)Indication s:Weight Loss Inject 0.5 mg into the skin once a week. Indications: Weight Loss 2 mL 04/27/2024 Active azithromycin (ZITHROMAX) 250 MG tabletIndicatio ns:Sore throat,Streptoc occus exposure Take 2 tablets by mouth on day one then 1 daily for four days. 6 tablet 06/24/2024 Active Active Problems Problem Noted Date Diagnosed Date Class 1 obesity due to exces s calories with serious comorbidity and body mass index (BMI) of 30.0 to 30.9 in adult 04/01/2024 H/O: section 08/21/2023 Adjustment reaction of adult life 10/02/2022 S/p nephrectomy 10/02/2022 Hx of hepatitis C 04/02/2022 Renal mass 04/02/2022 Overview (03/11/2024): Added automatically from request for surgery [id number] NAFLD (nonalcoholic fatty liver disease) 022 Inflammatory liver disease 04/09/2012 Resolved Problems Problem Noted Date Diagnosed Date Resolved Date (HHS/HCC) 11/08/2020 09/26/19 22 Encounters Date Type Department Care Team Description 06/24/2024 5:26 PM BARRELHEAD INSPECTOR - 06/24/2024 11:59 PM BARRELHEAD INSPECTOR Hospital Encounter [facility] [address] [place], [place] [id number] Sofia Rivero, PA Discharge Disposition: Home or Self Care (Routine Discharge) 06/24/2024 1:20 PM BARRELHEAD INSPECTOR Office Visit [facility] Family & Internal [address] [address] Sofia Rivero PA Sore Throat (X 1 week, cold chills) 06/24/2024 Travel 04/24/2024 MyChart Message Enc [facility] Family & Internal [facility] [address] [place] [address] Yaneth Harrison MD Prescription refill? from Last 3 Months Immunizations Name Administration Dates Next Due DTaP (Daptacel) 08/13/2000,10/21/1997 Dtp/Hib (Tetramune) 07/15/1996, 6,1995,06/18 Fluzone 6 Months+ Quad (0.5 mL Prefilled Syringe) 03/30/2020 HPV4 (Gardasil) 02/01/2013, 1,01/29/2010,11/27 Hepatitis A (Havrix [address]) 04/30/2006, 006 Hepatitis B Pediatric 01/21/1996, 996,1995,04/23 Hib (Omni-Hib) 1995 Influenza (FluMist) 01/29/2008 Influenza (Generic) 02/01/2013, 2,01/31/2011,04/07 Influenza Adult (Generic) 01/03/2017 MMR (MMRII) 08/22/2023,,08/13/2000,11/12,04/26/1996 Meningococcal (Menactra) 07/13/2012,04/30/2006 Polio IPV (Ipol) 08/13/2000,11/12/1996 Polio Opv (Generic) 1995,1995,1995 Tdap (Generic) 09/06/2020,08/17/2020,04/30/2006 Varicella (Varivax) 01/29/2008,01/24/1998 Family History Medical History Relation Comments None Brother 1 None Brother 2 Diabetes Father Breast Cancer Maternal Aunt 1 x 3 Breast Cancer Maternal Aunt 2 Breast Cancer Maternal Grandmother Breast Problems Mother benign lumpectom ies Breast Cancer Paternal Aunt Diabetes Paternal Grandfather Breast Cancer Paternal Grandmother Relation Status Comments Brother 1 Alive Brother 2 Alive Father Alive Maternal Aunt 1 Alive Maternal Aunt 2 Alive Maternal Grandmother Mother Alive Paternal Aunt Alive Paternal Grandfather Paternal Grandmother Social History Tobacco Use Types Packs/Day Years Used Date Smoking Tobacco: Never Smokeless Tobacco: Never Tobacco Cessation:Counseling Given: No Alcohol Use Standard Drinks/Week Comments Not Currently 0 (1 standard drink = 0.6 oz pur e alcohol) rare PHQ-2 Answer Date Recorded Patient Health Questionnaire-2 Score 0 06/24/2024 Depression Answer Date Recor ded Last EPDS Total Score 6 08/22/2023 Last EPDS Self Harm Result 08/21 Comments No Sex and Gender Information Value Date Recorded Sex Assigned at Female 06/24/2024 1:07 PM BARRELHEAD INSPECTOR Legal Sex Female 8:26 PM CDT Gender Identity Not on file Sexual Orientation Not on file Last Filed Vital Signs Vital Sign Reading Time Taken Comments Blood Pressure 111/67 06/24/2024 1:14 PM BARRELHEAD INSPECTOR Pulse 78 06/24/2024 1:14 PM BARRELHEAD INSPECTOR Temperature 36.9 C (98.5 F) 06/24/2024 1:14 PM BARRELHEAD INSPECTOR Respiratory Rate 20 06/24/2024 1:14 PM BARRELHEAD INSPECTOR Oxygen Saturation 99% 04/01/2024 7:09 AM BARRELHEAD INSPECTOR Inhaled Oxygen Concentration - - Weight 74.4 kg (164 lb) 06/24/2024 1:14 PM BARRELHEAD INSPECTOR Height 160 cm (5' 3 ) 06/24/2024 1:14 PM BARRELHEAD INSPECTOR Body Mass Index 29.05 06/24/2024 1:14 PM BARRELHEAD INSPECTOR Plan of Treatment Upcoming Encounters Date Type Department Care Team (Late st Contact Info) Description 10/25/2024 1:40 PM CDT Office Visit [facility] Family & Internal Medicine - [place] [address] [place] [address] [place] [address] [facility]. [address] [place] [address] Health Maintenance Due Date Last Done Comments Cervical Cancer Screening Pap Smear (Age 21 to 29) Every 3 Years 1995 Annual Physical 09/25/2022 09/25/2021 COVID-19 Vaccine ( season) 2023 03/14/2021 Influenza Adult (#1) 2024 03/30/2020, 01/03/2017, 02/01/2013, Additional history exists Cervical Cancer Screening 10/03/2025 Po stponed from 1995 (Going to Outside Clinic) DTaP, Tdap and Td Vaccines (6 - Td or Tdap) 09/06/2030 09/06/2020, 08/17/2020, 04/30/2006, Additional history exists Hepatitis B Vaccines Completed 01/21/1996, 1995, 1995, Additional history exists Meningococcal Vaccine Completed 07/13/2012, 007 HPV Vaccines Completed 02/01/2013, 05/23, 01/29/2010, Additional history exists Hepatitis C Completed 07/29/2023, 05/22, 01/29/2023, Additional history exists PHQ-2 (Physician [place]) Completed 06/24/2024 Meningococcal B Vaccine Aged Out No l onger eligible based on patient's age to complete this topic Pneumococcal Vaccine: Pediatrics (0 to 5 Years) and At-Risk Patients (6 to 64 Years) Aged Out No longer eligible based on patient's age to complete this topic RSV Immunizations Under 20 Months Aged Out No longer eligible based on patient's age to complete this topic Goals Goal Patient Goal Type Associated Problems Recent Progress Patient-Stated? Author Safety Patient/family will have appropriate support at home upon discharge Tonja Mota building materials sales attendant Procedure Name Priority Date/Time Associated Diagnosis Comments CULTURE STREP A Routine 06/24/2024 1:29 PM BARRELHEAD INSPECTOR Sore throat STREP A RAPID Routine 06/24/2024 Sore throat HEPATITIS C ANTIBODY Routine 07/29/2023 12:24 PM CDT Encounter for screening of mother ([facility]) from Last 3 Months or Most Recently Relevant to Health Maintenance Results * CULTURE STREP A (06/24/2024 1:29 PM BARRELHEAD INSPECTOR) SPEC DESCRIPTION THROAT 06/24/2024 5:26 PM BARRELHEAD INSPECTOR [facility] SPECIAL REQUESTS NO SPECIAL REQUEST 06/24/2024 5:26 PM BARRELHEAD INSPECTOR [facility] CULTURE RESULT NO STREPTOCOCCUS PYOGENES (GROUP A) ISOLATED 06/26/2024 10:25 AM BARRELHEAD INSPECTOR [facility] THROAT SWAB / Unknown 06/24/2024 1:29 PM BARRELHEAD INSPECTOR 06/24/2024 5:28 PM BARRELHEAD INSPECTOR Sofia DUMONT MICROBIOLOGY - GENERAL ORDER ASHLEY Final Result [facility] [address] [place] [address], [place] [phone] [facility] [address] [place] [address], [place] [phone] * STREP A RAPID (06/24/2024) RAPID STREP TEST NEGATIVE NEGATIVE [id number] ANJELICA ROONEY [facility] Internal Control: VALID VALID [id number] WARREN LOPEZ STRUCTURE OF ANTERIOR PORTION OF NECK / Unknown 06/24/2024 Sofia DUMONT MICROBIOLOGY - GENERAL ORDER ASHLEY Final Result Performing Organization Address [facility] Co de Phone Number [phone] ANJELICA ROONEY [place] [address] [place] [address], [place] [phone] * (ABNORMAL) HEPATITIS C ANTIBODY (07/29/2023 12:24 PM CDT) HEPATITIS C AB REACTIVE(A ) NON-REACTI VE 07/29/2023 10:18 PM CDT [facility] Comment: NOTE: A POSITIVE RESULT WILL BE CONFIRMED BY THE HEP C RNA, QUANT, PCR TEST. 07/29/2023 12:2 4 PM CDT [facility] Final Result Performing Organization Address City/[facility] Co de Phone Number [facility] [address] [place] [address], [place] [phone] from Last 3 Months or Most Recently Relevant to Health Maintenance Insurance [facility] Advance Directives * Full Code (Latest Code Status on File) Date Activated Date Inactivated Comments 08/21/2023 9:21 AM 08/23/2023 12:43 PM * Full Code Date Activated Date Inactivated Comments 08/08/2023 12:28 PM 08/08/2023 3:18 PM * Full Code Date Activated Date Inactivated Comments 07/07/2023 9:55 AM 07/07/2023 1:14 PM * Full Code Date Activated Date Inactivated Comments 11/09/2020 9:23 PM 11/12/2020 3:16 PM * Full Code Date Activated Date Inactivated Comments 11/08/2020 5:59 PM 11/09/2020 9:23 PM Care Teams Associate Professor Of History Relationship Specialty [place] [address] [facility] [address] [place] [address] PCP - General FAMILY PRACTICE 03/12/22
[2024-07-06 08:19] LABS: Hematocrit 42.7 % (37.0-47.0); Hemoglobin 14.2 g/dL (12.0-15.0); Mean Corpuscular HGB Conc 33.3 g/dl (32-36); Mean Corpuscular Hemoglobin 29.1 pg (26-34); Mean Corpuscular Volume 87.5 fl (80-100); Mean Platelet Volume 10.9 fl (7.4-10.4); Platelet Count Result 309 k/mm3 (150-375); Red Blood Count 4.88 M/mm3 (4.2-5.4); Red Cell Distribution Width 12.6 % (11.5-14.5); White Blood Count 5.7 K/mm3 (4.5-10.0)
[2024-07-06 08:34] LABS: Alanine Aminotransferase 24 U/L (6-35); Alkaline Phosphatase 62 U/L (38-126); Anion Gap 12 mmol/L (4-12); Aspartate Amino Transferase 23 U/L (14-36); Bilirubin,Total 0.4 mg/dL (0.2-1.3); Blood Urea Nitrogen 6 mg/dL (7-17); Calcium 9.8 mg/dL (8.4-10.2); Carbon Dioxide 26 mmol/L (22-30); Chloride 102 mmol/L (98-107); Estimated Glomerular Filt Rate > 60; Glucose 101 mg/dL (65-110); Sodium 140 mmol/L (137-145)
== END 2024-07-06 07:33 | disposition home or self-care (01) ==
PROVIDERS: PCP Family Medicine; Visit Provider Nurse Practitioner
DX: K76.0 Fatty (change of) liver, not elsewhere classified (principal)
CPT/HCPCS: 36415; 80053; 85027; 85610

== ENCOUNTER 2024-09-12 11:20 | Emergency (ER) | payer BC, OTHER, SELFPAY ==
[2024-09-12 11:26] VITALS: BP 107/81; PULSE 104; RESP 16; TEMP 36.8; O2SAT 100
[2024-09-12 11:35] LABS: EDUAAPPEAR Clear; EDUABILI Negative (Negative); EDUABLOOD Negative (Negative); EDUACOLOR1 Yellow; EDUAGLUCOSE Negative (Negative); EDUAKETONE Negative (Negative); EDUALEUKO Negative (Negative); EDUANITRATE Negative (Negative); EDUAPROTEIN Negative (Negative); EDUASPGRAVITY 1.025; EDUAUROBILI 0.2
--- NOTE | 2024-09-12 11:39 | ED_ITS ---
HPI - Female Genitourinary General Chief complaint: Urogenital-Female Stated complaint: Uti Symptoms Time Seen by Provider: 09/12/24 11:30 Source: patient Mode of arrival: ambulatory Limitations: no limitations History of Present Illness HPI Narrative: 29-year-old female presents with complaint of dysuria, urgency, frequency, fatigue, low back pain for 2 days. Afebrile. Denies nausea vomiting. History of partial nephrectomy. Has been told ?if having symptoms of urinary tract infection to get on antibiotic right away ?. All systems reviewed and negative except as noted above. Related Data Home Medications ?Medication ?Instructions ?Recorded ?Confirmed ?Last Taken ?Type multivitamin 1 tablet PO DAILY 07/10/22 07/14/24 Unknown History semaglutide (weight loss) 0.25 0.25 mg subcut WEEKLY 07/14/24 07/14/24 Unknown History mg/0.5 mL subcutaneous pen injector (Wegovy) Allergies Allergy/AdvReac Type Severity Reaction Status Date / Time No Known Allergies Allergy Verified 09/12/24 11:32 Review of Systems Review of Systems: CONSTITUTIONAL: Denies fever, chills, or sweats. EYES: Denies visual changes, redness, or discharge. ENT: Denies rhinorrhea, congestion, sore throat, or otalgia. CARDIOVASCULAR: Denies chest pain, palpitations, or edema. RESPIRATORY: Denies cough or dyspnea. GASTROINTESTINAL: Denies abdominal pain, nausea, vomiting, or diarrhea. GENITOURINARY: Reports dysuria, frequency, urgency. Denies hematuria. SKIN: Denies rash or itching. MUSCULOSKELETAL: Denies back pain, joint pain, or myalgia. NEUROLOGIC: Denies headache, numbness, or weakness. PSYCHIATRIC: Denies anxiety or depression. All other systems reviewed are negative, except as documented in HPI. [facility] Past Medical History Medical History Constipation GERD (gastroesophageal reflux disease) Left kidney mass Rib pain on right side Hepatitis C antibody positive in blood Left kidney mass RUQ abdominal pain Abnormal liver diagnostic imaging NAFLD (nonalcoholic fatty liver disease) Social History Social History Smoking status: Never smoker Second hand tobacco smoke exposure: No Alcohol intake: never Substance use: never Substance use type: does not use Living arrangements: with family Gender identity (if verbalized by the patient): Female Spiritual care concerns: No Comments At time of signature, agree with nursing past medical, surgical, social and family history. There is no relevant family history pertinent to the presenting complaint. Exam Narrative: GENERAL: This is a well-nourished, well-developed patient, in no apparent distress. HEAD: normocephalic, atraumatic. EYES: PERRL. Sclera clear/white. Vision is grossly intact. EARS: External ears normal NOSE: External nose normal NECK: Neck supple, non-tender without lymphadenopathy, masses or thyromegaly. CARDIOVASCULAR: Regular rate and rhythm without murmurs, gallops, or rubs. RESPIRATORY: Clear to auscultation. Breath sounds equal bilaterally. No wheezes, rales, or rhonchi. SKIN: warm, Dry, intact with no suspicious lesions or rash, good texture and turgor. NEURO: awake, alert, and oriented to person, place and time. There were no obvious focal neurologic abnormalities. EXTREMITIES: No joint tenderness, effusion, or edema noted. No calf tenderness. Negative Homans sign bilaterally. BACK: No CVA tenderness. Course Course Level of Care: Express Care Visit Vital Signs Vital signs: Vital Signs Temperature 36.8 C 09/12/24 11:26 Pulse Rate 104 H 09/12/24 11:26 Respiratory Rate 16 09/12/24 11:26 Blood Pressure 107/81 09/12/24 11:26 Pulse Oximetry 100 09/12/24 11:26 Temperature 36.8 C 09/12/24 11:26 Pulse Rate 104 H 09/12/24 11:26 Respiratory Rate 16 09/12/24 11:26 Blood Pressure 107/81 09/12/24 11:26 Pulse Oximetry 100 09/12/24 11:26 Reviewed MDM - Female Genitourinary MDM Narrative Medical decision making narrative: Urinalysis normal. Urine culture ordered. Will treat patient with antibiotic due to patient's urinary symptoms, history of partial nephrectomy. Patient is well-appearing, nontoxic. Differential Diagnosis Differential diagnosis: Likely urinary tract infection Lab Data Labs: Lab Results 09/12/24 Range/Units 11:33 POC Urine Color Yellow POC Urine Clarity Clear POC Urine pH 6.0 POC Ur Specif [place] 1.025 POC Urine Protein Negative (Negative) POC Ur Glucose (UA) Negative (Negative) POC Urine Ketones Negative (Negative) POC Urine Blood Negative (Negative) POC Urine Nitrite Negative (Negative) POC Urine Bilirubin Negative (Negative) POC Urine Urobilinogen 0.2 POC U Leukocyte Esteras Negative (Negative) Discharge Plan Discharge Clinical Impression: Urinary tract infection Qualifiers: Urinary tract infection type: site unspecified Hematuria presence: without hematuria Qualified Code(s): N39.0 - Urinary tract infection, site not specified Patient Disposition: Home Condition: Stable Instructions: Antibiotic Form, Urinary Tract Infection in Women (ED) Additional Instructions: Your urinalysis did not show any results concerning for urinary tract infection but due to her symptoms I am prescribing an antibiotic today. A urine culture was ordered and results will take 48-72 hours. Drink at least 64 oz of water a day. See your doctor if symptoms are not improving. Patient Language: Lebanese Prescriptions: New amoxicillin-pot clavulanate [Augmentin] 500-125 mg tablet 1 tablet PO BID 3 Days Qty: 6 0RF No Action Wegovy 0.25 mg/0.5 mL pen injector 0.25 mg subcut WEEKLY Rx Instructions: administer weeks 1 through 4 of therapy multivitamin Tablet 1 tablet PO DAILY Follow-up/Referrals: PHYSICIAN,FISCAL SERVICES MANAGER [Primary Care Provider] - Time of Disposition: 11:39
== END 2024-09-12 11:44 | disposition home or self-care (01) ==
PROVIDERS: Emergency Provider Nurse Practitioner Family
DX: N39.0 Urinary tract infection, site not specified (principal); K21.9 Gastro-esophageal reflux disease without esophagitis; K76.0 Fatty (change of) liver, not elsewhere classified
CPT/HCPCS: 81003; 87086; 99213; G0463